=== PATIENT | female | born 1965 | race Caucasian/White ===

== ENCOUNTER 2016-12-05 07:24 | Day surgery (SDC) | payer OTHER ==
[2016-12-05] MEDS ORDERED: fentaNYL 100 MCG/2 ML INJ ONE (08:36)
[2016-12-05] MEDS ORDERED: MIDAZOLAM 2 MG/2 ML VIAL ONE (08:37)
[2016-12-05] MEDS ORDERED: IOPAMIDOL (ISOVUE-300) 100 ML BTL ONE (09:00)
[2016-12-05] MEDS ORDERED: LIDOCAINE 1% 30 ML SDV ONE (09:03)
== END 2016-12-05 10:40 | disposition home or self-care (01) ==
LOC: FIMAGING 07:24
PROVIDERS: ATTEND Specialist
PROC: 0T913ZZ Drainage of Left Kidney, Percutaneous Approach (ICD-10-PCS; principal; 2016-12-05 09:35)
DX: N28.1 Cyst of kidney, acquired (principal)
CPT/HCPCS: 50390; 75989; 99152; 99153; C1729; C1769; J1644; J2250; J3010; Q9967